=== PATIENT | female | born 1970 | race American Indian/Alaskan Native ===

== ENCOUNTER 2017-01-25 22:56 | Emergency (ER) | payer OTHER ==
--- NOTE | 2017-01-26 00:33 | XRay Report ---
FINAL REPORT EXAM: XR CHEST ROUTINE 2V HISTORY: shortness of breath TECHNIQUE: PA and lateral views of the chest were submitted. FINDINGS: Heart size mediastinum appear normal. The lungs are clear. The bones and soft tissues appear normal. IMPRESSION: Normal chest.
[2017-01-26 00:41] LABS: Basophils % (Auto) 0.2 % (0.0-1.8); Eosinophils % (Auto) 0.1 % (0.0-4.3); Hemoglobin 13.2 gm/dl (10.1-14.3); Mean Corpuscular HGB Conc 34 % (30-34); Mean Corpuscular Hemoglobin 31 pg (28-32); Mean Corpuscular Volume 91 fl (79-97); Platelet Count 298 K/mm3 (140-440); Red Blood Count 4.28 M/mm3 (3.65-5.03); Red Cell Distribution Width 12.5 % (13.2-15.2); White Blood Count 19.4 K/mm3 (4.5-11.0)
[2017-01-26 00:50] LABS: Anion Gap 17 mmol/L; BUN/Creatinine Ratio 13; Blood Urea Nitrogen 8 mg/dL (7-17); Calcium 9.3 mg/dL (8.4-10.2); Carbon Dioxide 26 mmol/L (22-30); Chloride 91.7 mmol/L (98-107); Glucose 91 mg/dL (65-100); Potassium 3.8 mmol/L (3.6-5.0); Sodium 131 mmol/L (137-145)
[2017-01-26 05:51] VITALS: BP 142/78
--- NOTE | 2017-01-26 08:48 | Emergency Department Report ---
ED General Adult HPI - General Chief complaint: Upper Respiratory Infection Stated complaint: HEAD COLD Time Seen by Provider: 01/26/17 08:43 Source: patient Mode of arrival: Ambulatory Limitations: No Limitations - History of Present Illness Initial comments: Patient describes malar pain bilaterally. She states that she has had a " [place] discharge that smells bad" from her nose. She denies photophobia. She denies neck pain or stiffness. She has some headache but is basically anterior facial and frontal. She is not complaining of chest pain. She has had some soreness when she coughs which has been Productive of a greenish yellow sputum as well. She denies fever or chills. She is not nauseated. -: week(s) Location: head Radiation: non-radiation Quality: aching Consistency: constant Improves with: none Worsens with: none Associated Symptoms: denies other symptoms Treatments Prior to Arrival: none - Related Data Home Medications Medication Instructions Recorded Confirmed Last Taken Insulin Aspart [NovoLOG Flexpen] 5 units SQ AC 10/09/15 10/09/15 2 Days Ago ~10/07/15 Insulin Detemir [Levemir VIAL] 15 units SUB-Q HS 10/09/15 10/09/15 2 Days Ago ~10/07/15 Methimazole [Tapazole] 10 mg PO BID 10/09/15 10/09/15 2 Days Ago ~10/07/15 Previous Rx's Medication Instructions Recorded Last Taken Type Ibuprofen [Motrin] 600 mg PO Q8H PRN #15 tablet 05/10/16 Unknown Rx Amoxicillin/K Clav Tab [Augmentin 1 tab PO Q12HR #20 tab 01/26/17 Unknown Rx 875 mg] Butalb/Acetaminophen/Caffeine 1 cap PO Q6HR PRN #10 cap 01/26/17 Unknown Rx [Fioricet 50-300-40 mg CAP] Allergies Allergy/AdvReac Type Severity Reaction Status Date / Time No Known Allergies Allergy Verified 10/08/15 11:44 ED Review of Systems ROS: Stated complaint: HEAD COLD Other details as noted in HPI Constitutional: denies: chills, fever Eyes: denies: eye pain, eye discharge, vision change ENT: denies: ear pain, throat pain Respiratory: denies: cough, shortness of breath, wheezing Cardiovascular: denies: chest pain, palpitations Endocrine: no symptoms reported Gastrointestinal: denies: abdominal pain, nausea, diarrhea Genitourinary: denies: urgency, dysuria, discharge Musculoskeletal: denies: back pain, joint swelling, arthralgia Skin: denies: rash, lesions Neurological: denies: headache, weakness, paresthesias Psychiatric: denies: anxiety, depression Hematological/Lymphatic: denies: easy bleeding, easy bruising ED Past Medical Hx - Past Medical History Previous Medical History?: Yes Hx Diabetes: Yes (type 1) Additional medical history: hyperthyroid - Surgical History Past Surgical History?: Yes Additional Surgical History: hysterectomy - Social History Smoking Status: Current Every Day Smoker Substance Use Type: None - Medications Home Medications: Home Medications Medication Instructions Recorded Confirmed Last Taken Type Insulin Aspart [NovoLOG Flexpen] 5 units SQ AC 10/09/15 10/09/15 2 Days Ago History ~10/07/15 Insulin Detemir [Levemir VIAL] 15 units SUB-Q HS 10/09/15 10/09/15 2 Days Ago History ~10/07/15 Methimazole [Tapazole] 10 mg PO BID 10/09/15 10/09/15 2 Days Ago History ~10/07/15 Ibuprofen [Motrin] 600 mg PO Q8H PRN #15 tablet 05/10/16 Unknown Rx Amoxicillin/K Clav Tab [Augmentin 1 tab PO Q12HR #20 tab 01/26/17 Unknown Rx 875 mg] Butalb/Acetaminophen/Caffeine 1 cap PO Q6HR PRN #10 cap 01/26/17 Unknown Rx [Fioricet 50-300-40 mg CAP] ED Physical Exam - General Limitations: No Limitations General appearance: alert, in no apparent distress - Head Head exam: Present: atraumatic, normocephalic - Eye Eye exam: Present: normal appearance, PERRL, EOMI - ENT ENT exam: Present: mucous membranes moist, other (malar tenderness pressure no edema no erythema) - Neck Neck exam: Present: normal inspection. Absent: tenderness, meningismus, lymphadenopathy, thyromegaly - Respiratory Respiratory exam: Present: normal lung sounds bilaterally. Absent: respiratory distress - Cardiovascular Cardiovascular Exam: Present: regular rate, normal rhythm. Absent: systolic murmur, diastolic murmur, rubs, gallop - GI/Abdominal GI/Abdominal exam: Present: soft, normal bowel sounds. Absent: distended, tenderness, guarding, rebound, rigid - Extremities Exam Extremities exam: Present: normal inspection - Back Exam Back exam: Present: normal inspection - Neurological Exam Neurological exam: Present: alert, oriented X3, CN II-XII intact. Absent: motor sensory deficit - Psychiatric Psychiatric exam: Present: normal affect, normal mood - Skin Skin exam: Present: warm, dry, intact, normal color. Absent: rash ED Course Vital Signs 01/25/17 01/26/17 01/26/17 23:50 03:28 05:47 Temperature 99.7 F H 98.3 F Pulse Rate 106 H 100 H Respiratory 20 18 Rate Blood Pressure 141/75 144/90 Blood Pressure [Left] O2 Sat by Pulse 100 100 99 Oximetry 01/26/17 01/26/17 01/26/17 05:50 05:51 06:00 Temperature 98.4 F Pulse Rate 76 Respiratory 19 19 Rate Blood Pressure 142/78 Blood Pressure 142/78 [Left] O2 Sat by Pulse 98 96 Oximetry 01/26/17 01/26/17 06:16 06:30 Temperature Pulse Rate Respiratory Rate Blood Pressure 142/78 142/78 Blood Pressure [Left] O2 Sat by Pulse 96 95 Oximetry ED Medical Decision Making - Lab Data Result diagrams: 01/26/17 00:09 01/26/17 00:09 Laboratory Results - last 24 hr 01/26/17 01/26/17 01/26/17 00:09 00:09 06:06 WBC 19.4 H RBC 4.28 Hgb 13.2 Hct 39.0 MCV 91 MCH 31 MCHC 34 RDW 12.5 L Plt Count 298 Lymph % (Auto) 8.6 L [place] % (Auto) 7.9 H Eos % (Auto) 0.1 Baso % (Auto) 0.2 Lymph # 1.7 [place] # 1.5 H Eos # 0.0 Baso # 0.0 Seg Neutrophils % 83.2 H Seg Neutrophils # 16.2 H Sodium 131 L Potassium 3.8 Chloride 91.7 L Carbon Dioxide 26 Anion Gap 17 BUN 8 Creatinine 0.6 L Estimated GFR > 60 BUN/Creatinine Ratio 13 Glucose 91 POC Glucose 208 H Calcium 9.3 Critical care attestation.: If time is entered above; I have spent that time in minutes in the direct care of this critically ill patient, excluding procedure time. ED Disposition Clinical Impression: Acute sinusitis Qualifiers: Sinusitis location: unspecified location Recurrence: not specified as recurrent Qualified Code(s): J01.90 - Acute sinusitis, unspecified Disposition: TO HOME OR SELFCARE Is pt being admited?: No Does the pt Need Aspirin: No Condition: Stable Instructions: Sinusitis (ED), Acute Headache (ED) Additional Instructions: Follow-up with an ear nose and throat physician and your primary care provider. Watch her sugars. Return any fever or chills or if you feel worse. Return if you have a worsening headache vomiting neck discomfort or any other acute change her symptoms. Prescriptions: Amoxicillin/K Clav Tab [Augmentin 875 mg] 1 tab PO Q12HR #20 tab Butalb/Acetaminophen/Caffeine [Fioricet 50-300-40 mg CAP] 1 cap PO Q6HR PRN #10 cap PRN Reason: headache Referrals: PRIMARY CARE, [Primary Care Provider] - 3-5 Days Time of Disposition: 09:48
[2017-01-26] MEDS ORDERED: TYLENOL ONE (09:05)
[2017-01-26] MEDS ORDERED: TYLENOL PO ONE (09:07)
[2017-01-26] MEDS ORDERED: ZOFRAN IV ONE (09:24)
[2017-01-26] MEDS ORDERED: DILAUDID IV ONE (09:24)
[2017-01-26] MEDS ORDERED: ROCEPHIN/NS 1 GM/50 ML 1 GM/50 ML BAG IV ONE (09:25)
[2017-01-26] MEDS ORDERED: NACL 0.9% 1000 ML 1,000 ML IV ONE (09:25)
[2017-01-26] MEDS ORDERED: cefTRIAXone 1 GM in NACL 0.9% 20 ML IV ONE (10:30)
== END 2017-01-26 12:14 | disposition home or self-care (01) ==
LOC: ED 22:56
DX: J01.90 Acute sinusitis, unspecified (principal); E10.9 Type 1 diabetes mellitus without complications; F17.200 Nicotine dependence, unspecified, uncomplicated; Z90.710 Acquired absence of both cervix and uterus; Z79.4 Long term (current) use of insulin
CPT/HCPCS: 36415; 71020; 80048; 82962; 85025; 87040; 93005; 93010; 96361; 96365; 96375; 99284; J0696; J1170; J2405; J7030